=== PATIENT | male | born 2005 | race Two or more races ===

== ENCOUNTER 2025-01-05 13:07 | Inpatient (IN) ==
[2025-01-05 13:33] LABS: Hematocrit (blood only) 44.4 % (42.0-52.0); Hemoglobin 15.2 g/dl (14.0-18.0); Immature Granulocytes # (auto) 0.04 K/uL (0.01-0.20); Immature Granulocytes % (auto) 0.5 %; Mean Corpuscular Hemoglobin 25.1 pg (25.0-34.0); Mean Corpuscular Volume 73.4 fL (80.0-100.0); Platelet Count 255 K/uL (130-400); RDW Standard Deviation 33.9 fL (36.4-46.3); Red Blood Count 6.05 M/uL (4.70-6.10); White Blood Count 8.63 K/ul (4.8-10.8)
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
[2025-01-05 13:53] LABS: Alanine Aminotransferase 24.0 U/L (7-52); Albumin Globulin Ratio 1.4 (0.9-2); Alkaline Phosphatase 70.0 U/L (34-104); Anion Gap 8.0 (3-11); Bilirubin,Total 0.7 mg/dl (0.2-1.0); Blood Urea Nitrogen 18.0 mg/dl (6-23); Calcium 9.7 mg/dl (8.6-10.3); Carbon Dioxide 26.0 mmol/L (21-32); Chloride 104.0 mmol/L (98-107); Creatinine Clr Calc Pharmacy 176.2 ml/min; Globulin 3.2 gm/dl (2.5-4.0); Glucose 174.0 mg/dl (70-99(Fasting)); Lipase 20.0 U/L (11-82); Potassium 3.4 mmol/L (3.5-5.1); Sodium 138.0 mmol/L (136-145); Total Protein 7.7 gm/dl (6.0-8.3)
[2025-01-05 14:00] LABS: INR 1.1 (0.9-1.1); Partial Thromboplastin Time 24 Seconds (21-31); Prothrombin Time 11.4 Seconds (9.0-12.0)
--- NOTE | 2025-01-05 14:01 | Emergency Department Note ---
ED Visit Note I was asked by Dr. Page, ED attending physician, to perform a chin and lower lip mucosal laceration repair on this patient. Please see Dr. Page's dictation for further treatment and final disposition. PROCEDURE NOTE: Examination shows a 2 cm chin laceration without active bleeding, gross wound contamination or soft tissue loss. Patient has multiple dental injuries as well. Patient also has a 2 cm wet mucosal lower lip laceration that is macerated, and significantly gaping. No tooth or additional foreign bodies are noted within the wound. The patient provided verbal consent for laceration evaluation and repair under local anesthesia. Using lidocaine 1% with epinephrine, good local anesthesia was administered to the external chin laceration. Peripheral tissue was then cleansed with iodine, then the wound was copiously pressure irrigated with normal saline. In sterile fashion, the chin wound was then probed and showed no additional underlying foreign debris. The wound was then approximated using 6-0 nylon simple interrupted sutures x 6. Bacitracin was applied. Attention was then directed to the wet mucosal laceration, which was also anesthetized using lidocaine 1% with epinephrine. Probing the wound does not show any underlying debris. This laceration was also approximated using 4-0 Vicryl simple and inverted interrupted sutures x4. .
[2025-01-05] MEDS: ACETAMINOPHEN 1,000 MG/100 ML VIAL IV STA (14:20)
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
[2025-01-05] MEDS: LIDOCAINE 1%/EPINEPHRINE 1:100,000 50 ML VIAL INFIL ONE (14:51)
[2025-01-05] MEDS: LIDOCAINE 1% LOCAL 20 ML VIAL INFIL ONE (14:51)
[2025-01-05] MEDS: MoRPHine SULFATE 4 MG/ML 1 ML CARP\\VIAL IV STA (15:33)
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
[2025-01-05] MEDS ORDERED: MoRPHine SULFATE 4 MG/ML 1 ML CARP\\VIAL IV PRN (16:12)
[2025-01-05] MEDS ORDERED: MELATONIN 3 MG TAB PO PRN (16:41)
[2025-01-05] MEDS ORDERED: ONDANSETRON INJ 2 MG/ML 2 ML VIAL IV PRN (16:41)
[2025-01-05] MEDS ORDERED: ALUMINUM/MAGNESIUM SUSP 30 ML UDC PO PRN (16:41)
[2025-01-05] MEDS ORDERED: MAGNESIUM HYDROXIDE SUSP 30 ML UDC PO PRN (16:41)
[2025-01-05] MEDS ORDERED: POLYETHYLENE (MIRALAX) 17 GM PACK PO PRN (16:41)
[2025-01-05] MEDS: KETOROLAC 30 MG/ML VIAL IV PRN (17:16)
[2025-01-05] MEDS: ACETAMINOPHEN 325 MG TAB PO SCH (17:16)
[2025-01-05] MEDS: POTASSIUM CHLORIDE 20 MEQ/15 ML UDC PO ONE (17:16)
[2025-01-05] MEDS: MoRPHine SULFATE 2 MG/ML CARP IV PRN (19:32)
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
[2025-01-06] MEDS: SODIUM CHLORIDE 0.9% 1,000 ML IV SCH (09:33)
[2025-01-06] MEDS ORDERED: PROPOFOL IV EMULSION 10 MG/ML 20 ML VIAL IV ONE ×2 (13:13→19:18)
[2025-01-06] MEDS ORDERED: LIDOCAINE 2% 2 ML VIAL/AMP(20MG/ML) INFIL ONE (13:13)
[2025-01-06] MEDS ORDERED: ONDANSETRON INJ 2 MG/ML 2 ML VIAL ONE (13:13)
[2025-01-06] MEDS ORDERED: BUPIVACAINE 0.25% PF 30 ML VIAL ONE (13:16)
--- NOTE | 2025-01-06 13:35 | Anesthesiology Consultation ---
Date of Service January 06, 2025 Assessment & Plan Chart Review Chart Review: Acceptable Risk for Surgery and Patient NOT seen in Pre Admission Testing Consults Requested none History Surgery Operation Date: 01/06/25 14:30 Proposed Procedures p Left Radial Fracture Open Reduction Internal Fixation, Possible DRUJ Pinning - MD shefali Gaines Open Reduction Mandibular Fracture, Application of Arch Bars - Shane Hayden DMD Height/Weight Height: 6 ft 1 in Weight: 95.3 kg Allergies Allergy/AdvReac Type Severity Reaction Status Date / Time No Known Allergies Allergy Unverified 01/05/25 15:53 Medications Home Medications Medication Instructions Recorded Confirmed Last Taken No Known Home Medications 01/05/25 01/05/25 Unknown Active Medications Generic Name Dose Route Start Last Admin Trade Name Freq PRN Reason Stop Dose Admin Acetaminophen 650 mg 01/05/25 16:15 01/06/25 10:02 Acetaminophen 325 Mg Tab PO 02/04/25 16:14 650 mg Q6H DENICE Administration Ketorolac Tromethamine 30 mg 01/05/25 16:12 01/05/25 22:45 Ketorolac 30 Mg/Ml Vial IV 30 mg Q6H PRN Administration Pain Morphine Sulfate 2 mg 01/05/25 16:12 01/05/25 19:32 Morphine Sulfate 2 Mg/Ml Carp IV 01/19/25 16:11 2 mg Q3H PRN Administration Pain (1,2,3,4,5) & Pre PT NPO Date Last Intake of Fluids: 01/05/25 Time Last Intake of Fluids: 21:00 Date Last Intake of Solids: 01/06/25 Time Last Intake of Solids: 21:00 Social History Smoking Status: Never smoker Do You Dip or Chew Tobacco: No Hx Alcohol Use: No Hx Substance Use: No substance use type: does not use Physical Exam Vital Signs Last Vital Signs Temp 38.4 C H 01/06/25 13:14 Pulse 118 H 01/06/25 13:14 Resp 18 01/06/25 13:14 BP 136/79 01/06/25 13:14 Pulse Ox 96 01/06/25 13:14 O2 Del Method Room Air 01/06/25 13:14 O2 Flow Rate 0 01/05/25 13:23 Testing Laboratory Results 01/05/25 13:17 01/05/25 13:17 PT 11.4 Seconds (9.0-12.0) 01/05/25 13:17 INR 1.1 (0.9-1.1) 01/05/25 13:17 APTT 24 Seconds (21-31) 01/05/25 13:17
[2025-01-06] MEDS ORDERED: MIDAZOLAM HCL 1 MG/ML 2ML VIAL ONE ×2 (13:36→14:42)
[2025-01-06] MEDS ORDERED: ROCURONIUM BROMIDE 10 MG/ML 5 ML VIAL IV ONE ×4 (13:47→18:01)
[2025-01-06] MEDS ORDERED: DROPERIDOL 5 MG/2 ML VIAL IV PRN (13:57)
[2025-01-06] MEDS ORDERED: HYDROmorphone INJ 1 MG/ML SYRINGE IV PRN (13:57)
[2025-01-06] MEDS ORDERED: ATROPINE SULFATE 0.1 MG/ML 10ML SYR IV PRN (13:57)
--- NOTE | 2025-01-06 14:24 | History & Physical Bridge Note ---
Date of Service January 06, 2025 History & Physical Bridge Note I have examined the patient, reviewed the History & Physical and in the interval since the performance of the History & Physical I have noted the following changes of clinical significance: no changes noted
[2025-01-06] MEDS ORDERED: PROPOFOL IV EMULSION 10 MG/ML 100 ML VIAL IV ONE (14:28)
[2025-01-06] MEDS ORDERED: DexMEDEtomidine HCL IV 100 MCG/ML VIAL IV ONE (14:28)
[2025-01-06] MEDS ORDERED: ACETAMINOPHEN 1000 MG/100 ML IV IV ONE (14:28)
[2025-01-06] MEDS ORDERED: OXYMETAZOLINE 0.05% 30 ML BTL ONE (14:29)
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
[2025-01-06] MEDS ORDERED: DEXAMETHASONE SOD INJ 4 MG/ML VIAL ONE (15:57)
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
[2025-01-06] MEDS ORDERED: KETAMINE HCL 10MG/ML SYR ONE (16:37)
--- NOTE | 2025-01-06 16:39 | Operative Report ---
Post Operative Report Pre & Post Diagnosis Operation Date: 01/06/25 14:30 Pre-Op Diagnosis: Galeazzi fracture of left radius Post-Op Diagnosis: Galeazzi fracture of left radius I identified the patient and participated in the time-out.: Yes Procedure Operation Date: 01/06/25 14:30 Actual Procedures p Left Radial Fracture Open Reduction Internal Fixation(Left) - Matt Victoria MD s Open Reduction Mandibular Fracture, Application of Arch Bars(Not Applicable) - Shane Hayden DMD Surgeon Matt Victoria MD Water System Operator IVA Gannon PA-C. No resident or fellow was available to assist. Estimated Blood Loss 5 Findings Consistent with Post-Op Diagnosis Specimens none Description of Procedure I was present during the entire case assisting with positioning, prepping, draping, wound retraction, wound closure, dressing and splint application. No fellow present. Please see Dr. Victoria operative note for specifics of the case. I attest to the content of the Intraoperative Record and any orders documented therein. Any exceptions are noted below.
[2025-01-06] MEDS ORDERED: GLYCOPYRROLATE 0.2 MG/ML VIAL ONE (16:44)
[2025-01-06] MEDS ORDERED: HYDROmorphone INJ 0.5 MG/0.5 ML SYR IV PRN (16:45)
[2025-01-06] MEDS ORDERED: HYDROmorphone INJ 2 MG/ML SYR/VIAL ONE (16:57)
[2025-01-06] MEDS: CHLORHEXIDINE GLUCONATE 0.12% 480 ML MT ONE (17:00)
[2025-01-06] MEDS: BUPIVACAINE/EPINEPHRINE 0.5% 1:200,000 1.8 ML CARP ONE (17:05)
[2025-01-06] MEDS ORDERED: ceFAZolin 330 MG/ML 1 GM VIAL ONE (18:01)
[2025-01-06] MEDS: TRIAMCINOLONE ACET 0.1% OINT 15 GM TUBE ONE (19:07)
[2025-01-06] MEDS ORDERED: SUGAMMADEX SODIUM 200 MG/2 ML VIAL IV ONE (19:10)
[2025-01-06] MEDS: BACITRACIN OINT 14 GM TUBE ONE (19:12)
[2025-01-06] MEDS ORDERED: HYDROcodone/APAP 7.5/325mg/15mL ELIX 15 ML/CUP PO PRN ×2 (19:24)
[2025-01-06] MEDS ORDERED: OXYMETAZOLINE 0.05% 30 ML BTL PRN (19:24)
--- NOTE | 2025-01-06 19:34 | Post Operative Brief Note ---
PG Immediate Post Op with CF Date of Surgery January 06, 2025 Pre & Post Diagnosis Operation Date: 01/06/25 14:30 Pre-Op Diagnosis: Galeazzi fracture of left radius Fracture of jaw Bilateral fracture of head of condyle and midline fracture of mandible Avulsion of tooth due to trauma # Fracture, avulsion, tooth: # 7,9,10 Post-Op Diagnosis: Galeazzi fracture of left radius Fracture of jaw Bilateral fracture of head of condyle and midline fracture of mandible Avulsion of tooth due to trauma # Fracture, avulsion, tooth: # 7,9,10 I identified the patient and participated in the time-out.: Yes Procedure Operation Date: 01/06/25 14:30 Actual Procedures p Left Radial Fracture Open Reduction Internal Fixation(Left) - Matt Victoria MD s closed Reduction Mandibular Fracture, Application of Arch Bars(Not Applicable) - Shane Hayden DMD extraction of tooth 7,9,10, bone graft the defect Open reduction segmental alveolar fracture upper anterior jaw Surgeon Shane Hayden DMD Cafeteria Counter Attendant IVA Gannon PA-C. No resident or fellow was available to assist. Estimated Blood Loss 5 Findings Consistent with Post-Op Diagnosis bilateral fractured subcondylar fracture segmental fracture upper anterior jaw Extensive lower lip lacerations Specimens Specimen Description: none per surgeon Anesthesia Type General Regional Complications due to extensive dental trauma difficult to establish dental occlusion Disposition Accompanied Patient To Recovery: Yes
--- NOTE | 2025-01-06 20:32 | XRay Report ---
2 views of the mandible No comparison Impression: Extensive postoperative changes of the jaw which is wired closed. Nondisplaced fracture involving the left mandibular ramus Electronically signed by Reji Huffman 01-06-2025 8:31 PM
--- NOTE | 2025-01-06 20:58 | Anesthesiology Progress Note ---
Date of Service January 06, 2025 Anesthesia Post Procedure Vital Signs Vital Signs: Temp Pulse Pulse Resp BP Pulse Ox O2 Del Method 01/06/25 20:30 37.9 C H 64 16 143/95 H 92 Nasal Cannula 01/06/25 20:25 92 H 16 148/92 H 92 Nasal Cannula 01/06/25 20:15 85 18 154/99 H 92 Oxymask 01/06/25 20:05 93 H 18 133/90 92 Oxymask 01/06/25 19:55 94 H 14 150/96 H 94 Oxymask 01/06/25 19:45 37.9 C H 112 H 16 173/101 H 92 Oxymask 01/06/25 13:14 38.4 C H 118 H 18 136/79 96 Room Air 01/06/25 12:51 36.7 C 120 H 18 128/75 98 Room Air 01/06/25 07:41 36.9 C 112 H 18 122/80 95 Room Air 01/05/25 23:00 37.0 C 66 20 125/77 97 Room Air O2 Flow Rate 01/06/25 20:30 4 01/06/25 20:25 4 01/06/25 20:15 6 01/06/25 20:05 9 01/06/25 19:55 12 01/06/25 19:45 12 01/06/25 13:14 01/06/25 12:51 01/06/25 07:41 01/05/25 23:00 Pain Intensity Head: Pain Intensity: 2 Left Arm: Pain Intensity: 2 Transfer of Care Handoff Completed per policy Notes Mental Status: alert / awake / arousable Patient Amnestic to Procedure: Yes Nausea / Vomiting: adequately controlled Pain: adequately controlled Airway Patency, RR, SpO2: stable & adequate BP & HR: stable & adequate Hydration State: stable & adequate Anesthetic Complications: no major complications apparent and Pt Satisfied with anesthetic care
[2025-01-06] MEDS: AMPICILLIN/SULBACTAM SOD 3,000 MG/100 ML BAG IV SCH (21:02)
[2025-01-06] MEDS: KETOROLAC 30 MG/ML VIAL IV SCH (21:03)
[2025-01-06] MEDS: dexAMETHasone 6 MG in SYRINGE 0 ML IV SCH (21:09)
[2025-01-06] MEDS: D5W AND 1/2NSS + 20MEQ KCL 20 MEQ/1,000 ML BAG IV SCH (21:09)
[2025-01-06] MEDS: CHLORHEXIDINE GLUCONATE 0.12% 480 ML MT SCH (23:13)
--- NOTE | 2025-01-07 07:55 | Fluoroscopy Report ---
FL wrist LT 2V CLINICAL HISTORY: ORIF LT RADIUS COMPARISON STUDY: Prior neck FLUOROSCOPY TIME: 5.8 seconds FLUOROSCOPY IMAGES: 2 EXPOSURE DOSE: 0.135 mGy FINDINGS: Fluoroscopic guidance for ORIF IMPRESSION: Volar screw plate fixation distal radius ACT 112: Negative or not required by law. Electronically signed by: Desiree Mcgee M.D. 01/07/2025 7:53 AM
[2025-01-07] MEDS ORDERED: ASPIRIN 81 MG ECTAB PO SCH (09:00)
[2025-01-07] MEDS: ACETAMINOPHEN SUSP 325 MG/10.15 ML UDC PO PRN (09:48)
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
--- NOTE | 2025-01-07 10:09 | CT Scan Report ---
CT facial bones wo con CLINICAL HISTORY: 19 years-old Male presenting with s/p bilateral subcondyle fractures, maxillary Fx. Follow-up study in a patient with acute facial bone fractures COMPARISON STUDY: Radiographs of the mandible 01/06/2025, CT maxillofacial 01/05/2025 TECHNIQUE: High-resolution CT scan of the facial bones is performed. Images are reviewed in the axia l, sagittal, and coronal planes. IV contrast was not administered for this examination. A dose lower ing technique was utilized adhering to the principles of ALARA. CT DOSE: 713.48 mGy.cm FINDINGS: Postoperative changes status post ORIF of the acute bilateral mandibular fractures and alveolar ridge maxillary fractures. There is unchanged displacement and angulation of the right mandibular condylar fracture along with associated right temporal mandibular subluxation. The acute nondisplaced fractur e within the neck of the left mandible is unchanged. Status post extraction of the bilateral mandibul ar central and lateral incisors. The fixation hardware appears intact. No additional acute facial bon e fracture identified. Minimal mucosal thickening of the paranasal sinuses. The mastoid air cells are clear. Tiny punctate radiodense foci project over the lower left tissues which may be postsurgical o r represent tooth fragments. No postoperative fluid collections. IMPRESSION: 1. Status post ORIF of the acute mandibular and maxillary alveolar ridge fractures. 2. There is unchanged alignment of the acute, angulated and displaced right mandibular condylar fract ure with persistent temporal mandibular joint subluxation. 3. Unchanged alignment of the acute nondisplaced fracture involving the neck of the left mandible. 4. Status post extraction of the maxillary central and lateral incisors. ACT 112: Negative or not required by law. The above report was generated using voice recognition software. It may contain grammatical, syntax o r spelling errors. Electronically signed by: Cole Navarrete M.D. 01/07/2025 10:06 AM
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
[2025-01-07 10:39] LABS: Hematocrit (blood only) 41.3 % (42.0-52.0); Hemoglobin 14.3 g/dl (14.0-18.0); Immature Granulocytes # (auto) 0.07 K/uL (0.01-0.20); Immature Granulocytes % (auto) 0.5 %; Mean Corpuscular Hemoglobin 25.8 pg (25.0-34.0); Mean Corpuscular Volume 74.5 fL (80.0-100.0); Platelet Count 267 K/uL (130-400); RDW Standard Deviation 33.7 fL (36.4-46.3); Red Blood Count 5.54 M/uL (4.70-6.10); White Blood Count 14.61 K/ul (4.8-10.8)
[2025-01-07 10:56] LABS: Anion Gap 8.0 (3-11); Blood Urea Nitrogen 12.0 mg/dl (6-23); Calcium 9.3 mg/dl (8.6-10.3); Carbon Dioxide 26.0 mmol/L (21-32); Chloride 104.0 mmol/L (98-107); Creatinine Clr Calc Pharmacy 165.1 ml/min; Glucose 138.0 mg/dl (70-99(Fasting)); Potassium 3.9 mmol/L (3.5-5.1); Sodium 138.0 mmol/L (136-145)
--- NOTE | 2025-01-07 14:42 | Progress Note ---
Date of Service January 07, 2025 Assessment & Plan Admission and Anticipated Discharge Date Admission Date: January 05, 2025 Subjective Patient was seen in room 359 this morning. Trauma surgery post op note at 24 for closed reduction of bilateral subcondylar fracture and segmental maxillary fracture Stable result Fixation wires in place Lips very swollen (lower) as expected given the extent of the trauma Tissue tone, gingival tissue--excellent Occlusion very stable based on clinical exam No nasal congestion or bleeding, septum well positioned. No sinus issues Facial alignment excellent Reviewed post op care--diet, oral care, use of future elastics, activities while in fixation Not ready for discharge today I will re evaluate tomorrow Will need to demonstrate getting out of bed, better oral intake I reviewed the post op CT scan as expected bilateral subcondylar fracture with fixation Upper segmental fracture with bone graft looks goods He will need liquid pain and antibiotics which I will order prior to d/c I will see Paresh Jan 6 in the early afternoon Overall excellent result from recent surgery Results & Data Vital Signs (Past 12 Hours) Vital Signs Temp Pulse Pulse Resp BP Pulse Ox O2 Del Method 01/07/25 11:48 37.3 C 70 70 15 148/81 H 92 Room Air 01/07/25 10:28 37.7 C H 01/07/25 08:42 37.9 C H 01/07/25 07:58 38.2 C H 97 H 97 H 16 135/84 92 Room Air 01/07/25 07:15 Room Air 01/07/25 05:17 37.5 C 01/07/25 03:00 38.7 C H 75 18 143/85 H 96 Nasal Cannula O2 Flow Rate 01/07/25 11:48 01/07/25 10:28 01/07/25 08:42 01/07/25 07:58 01/07/25 07:15 01/07/25 05:17 01/07/25 03:00 1 PG Care Time/CCT Total # of Minutes Spent Total Time Spent with Patient: Total time spent is greater than 50% in coordination of care (as documented) at patient's floor/unit and/or counseling patient: Coding Level of Care Code None
[2025-01-07] MEDS: ASPIRIN 81 MG ECTAB PO SCH (20:06)
[2025-01-07] MEDS: TRIAMCINOLONE ACET 0.1% OINT 15 GM TUBE EXT SCH (20:08)
[2025-01-08 06:51] LABS: Hematocrit (blood only) 42.3 % (42.0-52.0); Hemoglobin 14.3 g/dl (14.0-18.0); Immature Granulocytes # (auto) 0.08 K/uL (0.01-0.20); Immature Granulocytes % (auto) 0.6 %; Mean Corpuscular Hemoglobin 25.2 pg (25.0-34.0); Mean Corpuscular Volume 74.5 fL (80.0-100.0); Platelet Count 269 K/uL (130-400); RDW Standard Deviation 33.5 fL (36.4-46.3); Red Blood Count 5.68 M/uL (4.70-6.10); White Blood Count 13.88 K/ul (4.8-10.8)
[2025-01-08 07:17] LABS: Anion Gap 8.0 (3-11); Blood Urea Nitrogen 11.0 mg/dl (6-23); Calcium 9.3 mg/dl (8.6-10.3); Carbon Dioxide 25.0 mmol/L (21-32); Chloride 105.0 mmol/L (98-107); Creatinine Clr Calc Pharmacy 200.1 ml/min; Glucose 154.0 mg/dl (70-99(Fasting)); Potassium 4.1 mmol/L (3.5-5.1); Sodium 138.0 mmol/L (136-145)
--- NOTE | 2025-01-08 12:22 | XRay Report ---
XR chest 1V portable CLINICAL HISTORY: Dyspnea. COMPARISON STUDY: Chest radiograph January 05, 2025. FINDINGS: Low lung volumes are noted with mild elevation of the right hemidiaphragm. Linear left basi lar densities favor atelectasis. Linear right basilar densities are noted with obscuration of the rig ht hemidiaphragm. Slight prominence of the interstitium is noted. Cardiomediastinal silhouette is nor mal. There is no pneumothorax. Equivocal small right pleural effusion. No pneumothorax. IMPRESSION: 1. Right basilar opacity. This favors atelectasis although pneumonia could appear similar. Left basil ar opacity suggestive of atelectasis. 2. Possible small right pleural effusion. 3. Pulmonary vascular congestion without overt pulmonary edema. ACT 112: Negative or not required by law. Electronically signed by: Ashwin Chen M.D. 01/08/2025 12:20 PM
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
[2025-01-09 00:19] VITALS: RESP 16
[2025-01-09 07:24] LABS: Hematocrit (blood only) 41.8 % (42.0-52.0); Hemoglobin 14.3 g/dl (14.0-18.0); Mean Corpuscular Hemoglobin 25.1 pg (25.0-34.0); Mean Corpuscular Volume 73.3 fL (80.0-100.0); Platelet Count 302 K/uL (130-400); RDW Standard Deviation 32.2 fL (36.4-46.3); Red Blood Count 5.70 M/uL (4.70-6.10); White Blood Count 12.52 K/ul (4.8-10.8)
--- NOTE | 2025-01-09 10:46 | Progress Note ---
Date of Service January 09, 2025 Assessment & Plan Admission and Anticipated Discharge Date Admission Date: January 05, 2025 Subjective Post op Day # 3 he is starting to turn the corner today. Big improvement over last 24 hours. Lip swelling greatly improved, taking more oral intake, starting to ambulate more over last 24 hours. Still needs to work on getting out of bed and chair and walk more. Oral care much improved, needs to force fluids more. His lungs seem somewhat congested and we discussed deep breathing and movement to prevent lung issues. I will D/C the IV to allow more ambulation. Still need to keep the lip moist, use the warm compresses around the close. Discussed diet once discharged tomorrow afternoon if continue to improve. I want to see more improvement in oral care, fluid intake and ambulation. Stressed need for movement to avoid lung issues. As per the jaw fracture-CT and clinical stability is noted. Plan Discharge tomorrow to home Results & Data Vital Signs (Past 12 Hours) Vital Signs Temp Pulse Resp BP Pulse Ox O2 Del Method 01/09/25 07:42 37.1 C 79 16 133/80 94 Room Air 01/09/25 07:30 Room Air 01/09/25 00:18 36.8 C 68 16 130/78 96 Room Air PG Care Time/CCT Total # of Minutes Spent Total Time Spent with Patient: Total time spent is greater than 50% in coordination of care (as documented) at patient's floor/unit and/or counseling patient: Coding Level of Care Code None
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
[2025-01-10 08:18] VITALS: BP 127/85; PULSE 90; TEMP 97.3; O2SAT 95
--- NOTE | 2025-01-10 08:38 | Orthopedic Progress Note ---
Date of Service January 10, 2025 Assessment & Plan (1) Fracture, radius: Plan: s/p left ORIF radius fracture with Dr Victoria 01/06/25 Pt is doing well, continue tylenol as needed for pain Splint care instructions were provided for pt to keep clean, dry and intact until follow up on 01/21 @ 945am with me Sling for comfort Non-weight bearing on left upper extremity We will take splint down, remove sutures, and place back on exos brace or cast. He will have xrays at this visit as well. Continue wiggling fingers freely and elevating best he can All of their questions and concerns were addressed. Reviewed the xrays with them today in the room Him and his dad were made aware that our number and address will be in discharge packet as well as his follow up, which I relayed to him today as well. Admission and Anticipated Discharge Date Admission Date: January 05, 2025 Subjective Pt here with his dad this morning. Says he is doing well and much better. No Pain. No sig n/t. Splint comfortable. Took tylenol yesterday for headache Physical Exam Physical Exam: Splint fitting appropriately. I peeled back some webril and ernesto that was constricting his pinky and he reported comfort. Sensation in tact distally to light touch. He is able to freely move all of the fingers. He can touch his thumb to his first finger. I adjusted his sling so it was fitting more appropriately. Results & Data Vital Signs (Past 12 Hours) Vital Signs Temp Pulse Resp BP Pulse Ox O2 Del Method 01/10/25 08:17 36.3 C L 90 16 127/85 95 Room Air 01/10/25 01:44 Room Air 01/10/25 00:00 36.4 C L 68 16 114/70 94 Room Air
--- NOTE | 2025-01-10 13:42 | Progress Note ---
Date of Service January 10, 2025 Assessment & Plan Admission and Anticipated Discharge Date Admission Date: January 05, 2025 Subjective Paresh is now doing great Lip swelling has improved to close to normal, pain controlled, oral intake improved,ambulating improved. OK for discharge and follow up in office in 7-10 days. reviewed home care, oral care, diet, use of wire cutters. Overall great progress over last 24 hours OK for discharge today in care of his parents. Results & Data Vital Signs (Past 12 Hours) Vital Signs Temp Pulse Resp BP Pulse Ox O2 Del Method 01/10/25 11:08 Room Air 01/10/25 08:17 36.3 C L 90 16 127/85 95 Room Air 01/10/25 01:44 Room Air PG Care Time/CCT Total # of Minutes Spent Total Time Spent with Patient: Total time spent is greater than 50% in coordination of care (as documented) at patient's floor/unit and/or counseling patient: Coding Level of Care Code None
--- NOTE | 2025-01-10 13:59 | Discharge Summary ---
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 intractable nausea or vomiting, or, if after hours, you may go to the Emergency Room for help. Constipation Constipation is a common side effect of narcotic pain medication. If you have not had a bowel movement within 2 days after surgery, we recommend purchasing an over the counter laxative such as Milk of Magnesia, Dulcolax, or Miralax from a local pharmacy, and taking it as instructed. Call our clinic if any questions. Slings and Braces If you were placed in a sling or brace, it must be worn at all times, including sleep. You may remove your sling or brace for physical therapy, home exercises, and showering. The length of time you will be in your brace and range of motion restrictions depends on what surgery you had; these details will be reviewed at your first post-operative appointment. Weight bearing and Range of Motion. Do not bear any weight through your operative extremity immediately after surgery. If you had upper extremity surgery, do not lift anything with that arm. If you are in a knee brace, keep it locked in place until your follow-up. We will discuss your weight bearing, range of motion, and lifting restrictions in detail at your first post-operative appointment. Continuous Passive Motion (CPM) Machine If you were prescribed a CPM machine, it will start after your first post- operative appointment, at which time we will give you instructions on the range of motion settings and duration of treatment Physical therapy You will be given a prescription for physical therapy or occupational therapy at your first post-operative appointment. Typically, patients start therapy within 1 week of surgery Wound care and showering We will inspect your wound at your first post-operative visit, and may do a dr child change at that time. Most patients will be in a water-proof dressing that is removed 14 days after surgery. It is normal to see some dried blood on the dressing. Do not remove your dressing, paper strips or sutures yourself unless you are given permission. Showering is allowed the day after surgery. Do not scrub or remove any dressings. The wound should not be submerged underwater (i.e. in a bathtub or pool) until 4 weeks after surgery CHUNG stockings If you were given white stockings, these are to be worn at all times except to shower (on both legs) for the first 2 weeks after surgery. Driving You may not drive while taking narcotic pain medication or while in a cast, splint, sling or brace. You, the patient, need to make the final determination about when you are safe to drive, however, the earliest you may consider driving after surgery is below: Hand/Wrist/Elbow Surgery: 3 days Shoulder Surgery: 2 weeks Hip,/Knee/Ankle Surgery: 4 weeks Fracture repair: 6 weeks Return to Work Your return to work depends on what surgery was done and what type of work you do. Please bring any paperwork your employer needs completed to your first post-operative visit. Also, bring a description of your job duties, as this helps us to understand what risks you may face at work. Travel Avoid long distance travel (greater than 1 hour) in airplanes and cars for the first 6 weeks after surgery. If you must travel, you need to have a Doppler ultrasound done before you travel to rule out a blood clot in your legs. Follow-up You should have a follow-up appointment already scheduled 1-2 days after surgery. If not, please contact our office to make this appointment before you leave the hospital. When to call the office It is normal to have swelling and bruising in the limb that was operated on. This will improve with time. It is also normal to have fevers for the first 2 days after surgery. Reasons you should call your doctor include: Uncontrolled pain; Nausea, vomiting, or constipation that does not improve with medication; Fevers over 101.5, chills, sweats; Drainage or bleeding from the wound; Foul odor; Spreading areas of redness; Any other concerns. Contact Information Please call Dr. Victoria's office at [phone] with any concerns. rn iv therapy Dr Hayden ADDITIONAL ACTIVITY RECOMMENDATIONS: * [place] teeth after every meal. It is very important to keep your mouth clean to prevent infection. * Starting tonight rinse with the Peridex as directed then 2 x a day * it is very important to keep well hydrated, this prevents fever SPECIAL CARE INSTRUCTIONS: *It is not uncommon that between day 2-4 that your swelling will be at its worst this is very normal, do not be alarmed. * Keep ice on the side of your face for the next 24 to 36 hours. This will help keep the swelling down. * You may experience slight nausea. To prevent this, never take your medication on an empty stomach. If nauseated, take small sips of ulises pascual until you feel better; then you may start on applesauce and toast. * You may experience some discomfort for a few days. If pain or swelling increases, Call Dr Hayden ACTIVITY RECOMMENDATIONS: 1. Take it easy for the next 5 to 7 days. 2. Rest and avoid heavy lifting. 3. Avoid clenching you teeth. 4. Avoid trying to move your jaw. SPECIAL DIET INSTRUCTIONS: Limitations: 1. You can eat any type of liquid diet or granulating blender diet. 2. Dietary supplements are helpful (i.e. "Ensure"). 3. See granulating blender diet instructions. 4. 2% or skim milk start with small sips. SPECIAL CARE INSTRUCTIONS: * Keep your mouth very clean. (Very important). * [place] teeth with a small, soft toothbrush 5 to 6 times a day. * Rinse with warm salt water, 1/2 teaspoon salt in 8 ounces of water after every meal or use "Peroxyl". * The use of a water pic is helpful. (Ask your oral surgeon about its use). * Ice for next 24 to 48 hours then change to warm compress. (20 minutes on and 20 minutes off). * Apply ointment to lips. * Carry scissors to cut rubber bands and wire cutters to cut wires in case of emergency. (This is very rare and should not happen.) * If you have any problems, call the doctor Jackelyn at [phone] * Massage your face as instructed. * Return to the office for a follow up check up on: office should call you on 01/11 to schedule appointment, if you do not hear from them, pleae call on 01/12 * office address--[address] phone # [phone] Hospital Medicine: If you need accommodations with your school work, please reach out to the Student Care and Advocacy office - they will be your best resources for any missed classes. Continue to use your incentive spirometer (plastic breathing device) at home to prevent pneumonia. Total Time Total Time Spent Total Time Spent (In Minutes): Time spent day of discharge 36 minutes including direct patient care, medication reconciliation, documentation, review of labs and images, and coordination of care. Coding Level of Care Code 92925 INP/OBS DISCH >30 MIN Diagnoses Fracture, radius S52.90XA
[2025-01-12] MEDS ORDERED: KETOROLAC 30 MG/ML VIAL IV PRN (06:00)
--- NOTE | 2025-01-17 10:01 | Operative Report ---
[facility] Post Operative Report Pre & Post Diagnosis Operation Date: 01/06/25 14:30 Pre-Op Diagnosis: Galeazzi fracture of left radius Fracture of jaw Bilateral fracture of head of condyle and midline fracture of mandible Avulsion of tooth due to trauma # Fracture, avulsion, tooth: # 7,9,10 Post-Op Diagnosis: Galeazzi fracture of left radius Fracture of jaw Bilateral fracture of head of condyle and midline fracture of mandible Avulsion of tooth due to trauma # Fracture, avulsion, tooth: # 7,9,10 I identified the patient and participated in the time-out.: Yes Procedure Operation Date: 01/06/25 14:30 Actual Procedures p Left Radial Fracture Open Reduction Internal Fixation(Left) - Matt Victoria MD s Open Reduction Mandibular Fracture, Application of Arch Bars(Not Applicable) - Shane Hayden DMD Surgeon Shane Hayden, ANGEL LUIS Kiln Repairer IVA Gannon PA-C. No resident or fellow was available to assist. Estimated Blood Loss 5 Findings Consistent with Post-Op Diagnosis Specimens none Drains none Anesthesia Type General Regional Complications none none Disposition Accompanied Patient To Recovery: Yes Indications complex fracture of the mandible complex repair lower lip laceration.- reduction of segmental fracture of the anterior maxilla with extraction of teeth 7,9,10 and bone graft Description of Procedure ADMITTING DIAGNOSES: Displaced bilateral subcondylar mandibular fracture Segmental fracture of anterior maxilla, removal of fractured teeth 7,9,10 Complex lower lip laceration OPERATION: Closed reduction of bilateral mandibular fractures with placement of hybrid arch bars Open reduction of segmental fracture of the anterior maxilla, extraction of fractured # 7,9,10 with bone graft Complex repair of extensive lower lip laceration OPERATION IN DETAIL: After this patient was cleared to undergo general, The patient was placed under general anesthesia via a nasotracheal intubation. After an appropriate time-out was taken to ensure that we had in our operating room with the proper equipment. After everyone agreed, the operation began. The patient was deeply anesthetized and the tubes were secured. The patient was prepped and draped in the usual manner. Given the nature of the fracture, a closed functional approach will be used. Arch bars will be placed on the upper/lower teeth and then a series of wires will be placed. Placement of Arch Bars Upper/Lower teeth: Local anesthesia in the form of Marcaine with a vasoconstrictor, approximately 4 carpules of the local anesthesia were injected. The fractured was reduced and the occlusion was checked. The Hybrid arch bars were placed on the lower and upper teeth the JL Garcia fixation screws, 7 screws were used It was noted that we had some slight movement between teeth # 23 and 24 where the symphyseal fracture was noted. I placed 25-gauge stainless steel wires around anterior teeth and as well as between the teeth to help stabilize the lower jaw. Given the minimal displacement of this fracture, I felt it was appropriate that the closed reduction with the arch bar would be enough stability. Placement of inter-arch (dental) fixation with rubber bands: I removed the throat packs, irrigated the oral cavity and suctioned it dry and passed an OG tube. I was able to carefully place the mandible into proper inter-dental relationship with the maxilla. I will place the patient into a fixated position with elastic at the conclusion of the case. Recovery Phase: At this time the sponge and instruments count was correct. The patient was allowed to recover in the usual manner and then once fully recovered moved to the recovery room, Post op plans: My plan is to keep the patient in a functional elastic positioning with a modified exercise program and soft diet for the next 3-4 weeks. We will keep the arch bars in place for a total of 6 weeks, then return him to the operating room for removal of the maxillary/mandibular fixation devices. I will refer the patient to a dentist for evaluation of the teeth that are fractured for repair and replacement. Outcome: Transported in stable condition to post anesthesia recovery area. The patient tolerated the surgical procedure and anesthesia extremely well and I anticipate an uneventful postoperative course. I attest to the content of the Intraoperative Record and any orders documented therein. Any exceptions are noted below.
== END 2025-01-10 15:31 | disposition home or self-care (01) | DRG 511 ==
LOC: ED 13:07 → EDINP 16:16 → 3W 16:42